=== PATIENT | male | born 1960 | race Caucasian/White ===

== ENCOUNTER 2017-07-14 10:27 | Day surgery (SDC) | payer OTHER ==
[2017-07-14] MEDS ORDERED: LACTATED RINGERS 1,000 ML IV ONE (10:32)
[2017-07-14] MEDS ORDERED: fentaNYL 250 MCG/5 ML VIAL IVP ONE (11:59)
[2017-07-14] MEDS ORDERED: MIDAZOLAM 2 MG/2 ML VIAL IVP ONE (11:59)
[2017-07-14 13:07] VITALS: BP 108/70
== END 2017-07-14 10:28 | disposition home or self-care (01) ==
LOC: SDS 10:27
PROVIDERS: ATTEND Surgery
PROC: 0DBN8ZZ Excision of Sigmoid Colon, Via Natural or Artificial Opening Endoscopic (ICD-10-PCS; principal; 2017-07-14 11:30)
DX: Z12.11 Encounter for screening for malignant neoplasm of colon (principal); D12.5 Benign neoplasm of sigmoid colon; K57.30 Diverticulosis of large intestine without perforation or abscess without bleeding; K64.8 Other hemorrhoids
CPT/HCPCS: 45385; J3010; J7120

== ENCOUNTER 2017-10-16 10:33 | Outpatient (CLI) | payer OTHER ==
--- NOTE | 2017-10-16 12:40 | XRAY Report ---
Procedure Date: 10/16/2017 Accession Number: [id number] / [id number] Procedure: XRS - Foot 3 View RT CPT Code: FULL RESULT: EXAM: Foot 3 View RT DATE: 10/16/2017 10:55 AM CLINICAL HISTORY: R #1 PIP PAIN TENDERNESS COMPARISON: None. TECHNIQUE: 3 views. FINDINGS: Bones: Normal. No fractures or bone lesions. Joints: Moderate osteoarthritis of the first metatarsophalangeal joint. Soft Tissues: Normal. No soft tissue swelling. IMPRESSION: Moderate osteoarthritis of the first metatarsophalangeal joint. RADIA
== END 2017-10-16 10:34 | disposition home or self-care (01) ==
LOC: DI.S 10:33
PROVIDERS: ATTEND Family Medicine
DX: M19.071 Primary osteoarthritis, right ankle and foot (principal)

== ENCOUNTER 2018-02-10 09:18 | Outpatient (CLI) | payer OTHER ==
--- NOTE | 2018-02-10 11:43 | XRAY Report ---
Reason: CHRONIC R HIP PAIN STIFFNESS Procedure Date: 02/10/2018 Accession Number: [id number] / [id number] Procedure: XR - Hip w/Pelvis 2-3V RT CPT Code: FULL RESULT: EXAM: RIGHT HIP AND PELVIS RADIOGRAPHY EXAM DATE: 02/10/2018 09:21 AM. HISTORY: Chronic right hip pain, stiffness. COMPARISONS: None. TECHNIQUE: 1 view of the pelvis and 1 view of the hip. FINDINGS: Bones: Apparent mild lateral translation of L4 on L5 may be positional. No fracture or bone lesion. Joints: The pubis symphysis and sacroiliac joints are preserved. There is joint space narrowing of the right femoral acetabular joint, mildly greater than the left-sided comparison. Soft Tissues: Normal. No soft tissue swelling. IMPRESSION: Mild to moderate degenerative disease of the right hip joint with no fracture or dislocation. RADIA
== END 2018-02-10 09:19 | disposition home or self-care (01) ==
LOC: DI 09:18
PROVIDERS: ATTEND Family Medicine
DX: M16.11 Unilateral primary osteoarthritis, right hip (principal)

== ENCOUNTER 2021-05-22 08:00 | Outpatient (CLI) | payer OTHER | END 2021-05-22 23:59 | disposition home or self-care (01) | LOC: LAB.S 08:00 | PROVIDERS: ATTEND Emergency Medicine | DX: J06.9 Acute upper respiratory infection, unspecified (principal); Z20.822 Contact with and (suspected) exposure to COVID-19 ==